=== PATIENT | female | born 1990 | race Caucasian/White ===

== ENCOUNTER → 2018-01-23 13:09 | Outpatient (CLI) | payer OTHER, SELFPAY ==
[2018-01-23 16:49] LABS: Glucose Challenge Gest 1H 50g 128 mg/dL (70-140)
[2018-01-23 17:01] LABS: Hematocrit 37.9 % (37-47); Hemoglobin 12.8 g/dl (12.0-15.0); Mean Corp Hgb Conc 33.8 g/gl (32-36); Mean Corpuscular Hgb 30.2 pg (27.0-32.0); Mean Corpuscular Volume 89.4 fL (81-99); Mean Platelet Vol. 10.4 fl (6.2-12.0); Platelet Count 285 K/mm3 (150-450); RBC Distribution Width CV 13.5 % (11.6-14.6); RBC Distribution Width SD 43.4 fl (35.1-43.9); Red Blood Count 4.24 M/mm3 (4.2-5.4); White Blood Count 17.9 K/mm3 (4.4-11.0)
[2018-01-23 17:14] LABS: Scan Indicated on CBC? Y/N NO
[2018-01-23 17:17] LABS: Vitamin D,25 Hydroxy 32.7 ng/mL (29.95-100.01)
== END ==
PROVIDERS: Visit Provider Obstetrics & Gynecology
DX: Z34.83 Encounter for supervision of other normal pregnancy, third trimester (principal)
CPT/HCPCS: 36415; 82306; 82950; 85027

== ENCOUNTER → 2018-02-02 14:24 | Outpatient (CLI) | payer BC, SELFPAY ==
[2018-02-02 15:54] LABS: Absolute Lymphocyte Count 2.54 X10^3/ul (0.83-4.51); Absolute Neutrophil Count 12.9 X10^3/uL (2.0-7.7); Basophil# 0.04 X10^3/uL; Basophil% 0.2 % (0-1); Eosinophil# 0.04 X10^3/uL; Eosinophils% 0.2 % (0-5); Hematocrit 39.9 % (37-47); Hemoglobin 13.6 g/dl (12.0-15.0); Lymphocyte # 2.54 X10^3/ul (4.0); Lymphocyte % 15.5 % (19-41); Mean Corp Hgb Conc 34.1 g/gl (32-36); Mean Corpuscular Hgb 30.1 pg (27.0-32.0); Mean Corpuscular Volume 88.3 fL (81-99); Mean Platelet Vol. 10.8 fl (6.2-12.0); Monocyte# 0.74 X10^3/uL; Monocyte% 4.5 % (0-10); Neutrophil # 12.88 X10^3/uL (2.7-7.7); Neutrophil % 78.6 % (47-70); Platelet Count 285 K/mm3 (150-450); RBC Distribution Width CV 13.3 % (11.6-14.6); RBC Distribution Width SD 42.3 fl (35.1-43.9); Red Blood Count 4.52 M/mm3 (4.2-5.4); White Blood Count 16.4 K/mm3 (4.4-11.0)
[2018-02-02 15:58] LABS: POSITIVE COUNT NO; POSITIVE DIFFERENTIAL NO; POSITIVE MORPHOLOGY NO
[2018-02-02 16:16] LABS: ALB/GLOB Ratio 0.5 RATIO (0.9-2.4); AST(SGOT) 17 U/L (15-37); Alanine Aminotransfer ALT/SGPT 23 U/L (13-56); Albumin, Serum 2.5 g/dL (3.2-5.0); Alkaline Phosphatase 140 U/L (45-117); Anion Gap 9 (5-15); BUN 9 mg/dL (7-18); BUN/Creat Ratio 13.9 RATIO (10-20); Calcium,Total 8.8 mg/dL (8.5-10.1); Chloride 105 mmol/L (98-107); Creatinine, Serum 0.65 mg/dL (0.55-1.02); EST Glomerular Filtration Rate 115 mL/min (>60); Est Glom Filt Rate - Afr Amer 139 mL/min (>60); Globulin 4.7 g/dL (2.2-4.2); Glucose 81 mg/dL (74-106); Protein, Total 7.2 g/dL (6.4-8.2); Sodium Level 137 mmol/L (136-145)
[2018-02-02 16:21] LABS: Protein, Urine (Random) 14.1 mg/dL (<11.9)
== END ==
PROVIDERS: Visit Provider Obstetrics & Gynecology
DX: Z34.83 Encounter for supervision of other normal pregnancy, third trimester (principal)
CPT/HCPCS: 80053; 82570; 84156; 84550; 85025

== ENCOUNTER 2018-02-23 09:45 | Inpatient (IN) | payer BC, SELFPAY ==
[2018-02-23] VITALS (18 sets, daily range): BP systolic 107–137; BP diastolic 61–91; PULSE 74–120; RESP 14–18; TEMP 35.7–36.7; O2SAT 96–100; BMI 40.5
[2018-02-23 09:08] LABS: ROM Internal Control Test YES-OK TO RESULT pt. (Internal QC)
[2018-02-23 09:09] LABS: ROM Patient Test POSITIVE (Negative)
[2018-02-23] MEDS: Betamethasone/Betamethasone 30 MG/5 ML Vial 12 MG IM (09:32)
[2018-02-23] MEDS: Lactated Ringers 1,000 ML 200 ML IV (09:45)
[2018-02-23 10:08] LABS: Absolute Lymphocyte Count 3.06 X10^3/ul (0.83-4.51); Absolute Neutrophil Count 12.8 X10^3/uL (2.0-7.7); Basophil# 0.03 X10^3/uL; Basophil% 0.2 % (0-1); Eosinophil# 0.04 X10^3/uL; Eosinophils% 0.2 % (0-5); Hematocrit 42.4 % (37-47); Hemoglobin 14.2 g/dl (12.0-15.0); Lymphocyte # 3.06 X10^3/ul (4.0); Lymphocyte % 17.9 % (19-41); Mean Corp Hgb Conc 33.5 g/gl (32-36); Mean Corpuscular Hgb 29.5 pg (27.0-32.0); Mean Platelet Vol. 11.4 fl (6.2-12.0); Monocyte# 0.97 X10^3/uL; Monocyte% 5.7 % (0-10); Neutrophil # 12.83 X10^3/uL (2.7-7.7); Neutrophil % 75.1 % (47-70); Platelet Count 285 K/mm3 (150-450); RBC Distribution Width CV 13.1 % (11.6-14.6); RBC Distribution Width SD 42.2 fl (35.1-43.9); Red Blood Count 4.82 M/mm3 (4.2-5.4); White Blood Count 17.1 K/mm3 (4.4-11.0)
[2018-02-23 10:09] LABS: POSITIVE COUNT NO; POSITIVE DIFFERENTIAL NO; POSITIVE MORPHOLOGY NO
[2018-02-23] MEDS: Sodium Citrate/Citric Acid 30 ML UDC PO (10:16)
[2018-02-23] MEDS: Cefazolin 2 GM in 0.9% Normal Saline 100 ML IV (10:39)
[2018-02-23 10:53] LABS: Group B Strep DNA By PCR Negative (Negative); Internal Control PASS; Probe Check PASS; Specimen Processing Control PASS
--- NOTE | 2018-02-23 11:28 | OP.PCM_ITS ---
Operative Report Date of Procedure: 02/23/18 Surgeon: Isaac Leal MD, FACOG [employer] Machine Operator: ANTONIO Gomez Anesthesia: Clark Dan CRNA Anesthesia: Spinal with Duramorph Pre-op Diagnosis: - -32+ week Twin with PPROM and Breech Presentation in Labor Post-Op Diagnosis: - -32+ week Twin with PPROM and Breech Presentation in Labor Procedure: Primary Low Transverse Cervical Caesarean Section Findings: A-- Viable female infant with Apgars of 8/9 in a pratibha breech presentation with clear amniotic fluid and normal three-vessel placenta; B-- Viable male infant with Apgars 8/8 in a complete breech presentation with clear amniotic fluid and normal three-vessel placenta. Indication: This is a 27-year-old who who presents to labor and delivery at 32 w 6 days gestation with PPROM and in labor. care remarkable for twin gestation but otherwise has been uneventful. The patient has been counseled regarding the risk and indications of this procedure including the possibility of bleeding infection and injury to surrounding structures such as bowel bladder. All questions were answered. Procedure: Patient was taken to the operating room where after spinal anesthesia was placed, the patient was prepped and draped in usual sterile fashion and a Andres catheter was placed. The abdomen was entered through a Pfannenstiel incision and peritoneum was entered bluntly. After developing a bladder flap on the lower uterine segment a low transverse incision was made on the uterus and breech was easily delivered onto the operative field and nose mouth and oropharynx were bulb suctioned. Subsequently a viable female infant was born with Apgars of 8/9. The infant was noted to cry move all extremities vigorously on the operative field. The umbilical cord was doubly clamped and ligated and infant handed to the nursery personnel who were present for the delivery. Baby B breech was also easily delivered onto the operative field and nose mouth and oropharynx were bulb suctioned. Subsequently a viable male was born with Apgars of 8/8. The was noted to cry move all extremities vigorously on the operative field. The umbilical cord was doubly clamped and ligated and handed to the nursery personnel who were present for the delivery. Placenta was delivered and noted to be 3 vessels and normal. Uterus was exteriorized and remaining placental tissue was removed. The uterus was then closed in 2 layers first with running locked 0 Vicryl suture followed by a second imbricating layer with 0 Vicryl suture. 0 Vicryl suture was then used in a horizontal mattress interrupted fashion to affect final hemostasis of the uterine incision line. Normal fallopian tubes and ovaries were visualized and the uterus was returned to the pelvis. Hemostasis was noted and rectus abdominis muscles were reapproximated in the midline with interrupted Number 0 Vicryl suture in a horizontal mattress fashion. Fascia was closed with running Number 1 PDS Strata fix suture. Subcutaneous tissue was irrigated with copious amouts of saline solution and then closed with running 3-0 Vicryl suture. Skin was closed with 4-0 monocryl suture in a running subcuticular fashion. Steri strips, telfa, and tape were placed across the incision. The patient tolerated the procedure well and was taken to the recovery room in satisfactory condition. Sponge, needle, and instrument counts were all reportedly correct. EBL was <500 cc. Cefotan 2 gms IV was given prior to the procedure. Spicemen to Pathology: Twin di-di Placenta Complications: None
--- NOTE | 2018-02-23 11:29 | DCINST_ITS ---
Discharge Diet: No Restrictions Discharge Activity: May not drive while taking narcotic pain medications., May Shower, May Take a Tub Bath May resume sexual activity in: 4-6 weeks Lifting Restrictions: 20 pounds Additional Activity Instructions:: Nothing in the vagina for 4-6 weeks. You may return to work/school in 6 weeks. Call your doctor if your incision/area has: Continuous Slow Oozing, Sudden Increased Bleeding, Increased Pain/ Swelling, Increased Redness, Foul Smelling Discharge Call your doctor if you observe: Fever of 101 or Higher, Inability to urinate, Inability to have a bowel movement, Using more than one pad per hour Additional Instructions: If you experience any of the following, contact your healthcare provider. * Bleeding that soaks a pad every hour for 2 hours * Unrelieved incision or abdominal pain * Swelling, redness, discharge or bleeding from your incision or episiotomy site * Your incision begins to separate * Problems urinating (including inability to urinate or burning while urinating) . * Visual changes * Severe headache * Flu-like symptoms * Pain or redness in one of both of your breasts * Pain, warmth, tenderness or swelling in your legs, especially the calf area * Frequent nausea and vomiting * Symptoms of depression or anxiety If you experience any of the following, call 911 or go to the nearest Emergency Room. * Chest pain * Problems breathing * Seizure activity * Partial or complete paralysis of a body part, slurred speech, weakness or drooping of the face, or a sudden inability to walk or hold your balance Allergies/Adverse Reactions: Allergies No Known Allergies Allergy (Verified 02/23/18 09:00) Medications to take at Discharge Docusate Sodium [Colace] 100 mg PO BID PRN PRN #60 cap 02/23/18 Ferrous Sulfate [Iron] 325 mg PO DAILY 02/23/18 Oxycodone [Oxyir] 5 - 10 mg PO Q6H PRN PRN 7 Days #20 tab 02/23/18 Vits [Prenatabs FA] 1 tablet PO DAILY 02/23/18 The following prescriptions were given: Oxycodone [Oxyir] 5 - 10 mg PO Q6H PRN PRN 7 Days #20 tab PRN Reason: Severe Pain (-07/22) Docusate Sodium [Colace] 100 mg PO BID PRN PRN #60 cap PRN Reason: Constipation Follow-Up: Call to make an appointment with your doctor for an incision check in 1-2 weeks. You will also need a 6 week post- follow up appointment. Please Follow Up With: Rosa Morris MD - [phone] When: Call to make an appointment for an incision check in 2 weeks. Primary Care Physician: Karri Williamson MD [Primary Care Provider] -
[2018-02-23] MEDS: Lactated Ringers 1,000 ML 100 ML IV ×2 (11:30→16:40)
[2018-02-23] MEDS: Ketorolac 30 MG/ML Syringe IV ×2 (17:11→23:48)
[2018-02-23] MEDS: 0.9% Saline Lock 10 ML Syringe IV (17:45)
[2018-02-24] VITALS (10 sets, daily range): BP systolic 100–129; BP diastolic 58–76; PULSE 69–91; RESP 16–18; TEMP 36–36.7; O2SAT 96–100
[2018-02-24] MEDS: Ketorolac 30 MG/ML Syringe IV ×3 (06:02→18:40)
[2018-02-24] MEDS: Lactated Ringers 1,000 ML 100 ML IV (06:02)
[2018-02-24 06:33] LABS: Hematocrit 38.3 % (37-47); Hemoglobin 12.9 g/dl (12.0-15.0); Mean Corp Hgb Conc 33.7 g/gl (32-36); Mean Corpuscular Hgb 29.8 pg (27.0-32.0); Mean Corpuscular Volume 88.5 fL (81-99); Mean Platelet Vol. 11.1 fl (6.2-12.0); Platelet Count 227 K/mm3 (150-450); RBC Distribution Width CV 13.2 % (11.6-14.6); RBC Distribution Width SD 42.8 fl (35.1-43.9); Red Blood Count 4.33 M/mm3 (4.2-5.4); White Blood Count 26.1 K/mm3 (4.4-11.0)
[2018-02-24 06:34] LABS: Scan Indicated on CBC? Y/N NO
--- NOTE | 2018-02-24 06:36 | PN.OBGYN_ITS ---
Subjective: Patient without complaints. Tolerating diet well. Baby boy to [place] for surfactant. - Physical Exam Vital Signs AF, VSS Temp Pulse Resp BP Pulse Ox 98.1 F 70 16 100/58 L 98 02/24/18 04:00 02/24/18 04:00 02/24/18 04:00 02/24/18 04:00 02/24/18 04:00 Oxygen Delivery Method Room Air Weight: 221 lb 12.56 oz Body Mass Index (BMI) 40.5 Intake and Output for Last 24 Hours 02/22/18 02/23/18 02/24/18 23:59 23:59 23:59 Intake Total 576 / 576 600 / 600 Output Total 850 / 850 1500 / 1500 Balance -274 / -274 -900 / -900 Laboratory Tests Past 24 Hrs 02/23/18 02/23/18 02/23/18 08:50 08:50 09:43 WBC 17.1 H RBC 4.82 Hgb 14.2 Hct 42.4 MCV 88.0 MCH 29.5 MCHC 33.5 RDW 13.1 RDW Differential 42.2 Plt Count 285 MPV 11.4 Immature Gran % (Auto) 0.900 Neut % (Auto) 75.1 H Lymph % (Auto) 17.9 L [place] % (Auto) 5.7 Eos % (Auto) 0.2 Baso % (Auto) 0.2 Absolute Neuts (auto) 12.8 H Absolute Lymphs (auto) 3.06 Total Counted Not Reportable Vag Amniotic Fld Detect POSITIVE H Group B Strep DNA Negative Specimen Comment Not Reportable Blood Type Antibody Screen 02/23/18 02/24/18 09:43 06:20 WBC Pending RBC Pending Hgb Pending Hct Pending MCV Pending MCH Pending MCHC Pending RDW Pending RDW Differential Pending Plt Count Pending MPV Immature Gran % (Auto) Neut % (Auto) Lymph % (Auto) [place] % (Auto) Eos % (Auto) Baso % (Auto) Absolute Neuts (auto) Absolute Lymphs (auto) Total Counted Vag Amniotic Fld Detect Group B Strep DNA Specimen Comment Blood Type A POSITIVE Antibody Screen NEGATIVE Wound is clean, dry, intact. Good urine output. Hemoglobin pending this morning. Medical Necessity - Tobacco Use Smoking Status: Never smoker Assessment/Plan Doing well. Continuing present care. Will consider hotel status tomorrow so patient can go back and forth between [facility] and [place] to be with [facility] and separate hospitals.
[2018-02-24] MEDS: Acetaminophen 500 MG Tablet 1000 MG PO (16:37)
[2018-02-24] MEDS: 0.9% Saline Lock 10 ML Syringe IV (18:41)
[2018-02-25] MEDS: 0.9% Saline Lock 10 ML Syringe IV ×2 (00:37→06:35)
[2018-02-25] MEDS: Ketorolac 30 MG/ML Syringe IV ×2 (00:37→06:35)
[2018-02-25 02:00] VITALS: BP 113/67; PULSE 69; RESP 17; TEMP 36.9
[2018-02-25] MEDS: Acetaminophen 500 MG Tablet 1000 MG PO ×2 (02:00→09:58)
[2018-02-25 06:54] LABS: Hematocrit 34.6 % (37-47); Hemoglobin 11.7 g/dl (12.0-15.0); Mean Corp Hgb Conc 33.8 g/gl (32-36); Mean Corpuscular Hgb 30.2 pg (27.0-32.0); Mean Corpuscular Volume 89.4 fL (81-99); Mean Platelet Vol. 10.4 fl (6.2-12.0); Platelet Count 240 K/mm3 (150-450); RBC Distribution Width CV 13.6 % (11.6-14.6); RBC Distribution Width SD 43.9 fl (35.1-43.9); Red Blood Count 3.87 M/mm3 (4.2-5.4); White Blood Count 18.9 K/mm3 (4.4-11.0)
[2018-02-25 06:55] LABS: Scan Indicated on CBC? Y/N NO
[2018-02-25 08:09] VITALS: BP 112/64; PULSE 76; RESP 16; TEMP 36.5
--- NOTE | 2018-02-25 08:43 | PCM.PN.OB ---
Subjective: Patient without complaints. Tolerating diet well. Positive flatus. Wants to go home. - Physical Exam Vital Signs AF, VSS Temp Pulse Resp BP Pulse Ox 97.7 F L 76 16 112/64 98 02/25/18 08:09 02/25/18 08:09 02/25/18 08:09 02/25/18 08:09 02/24/18 16:34 Oxygen Delivery Method Room Air Weight: 221 lb 12.56 oz Body Mass Index (BMI) 40.5 Intake and Output for Last 24 Hours 02/23/18 02/24/18 02/25/18 23:59 23:59 23:59 Intake Total 576 / 576 1983 / 1983 Output Total 850 / 850 3750 / 3750 Balance -274 / -274 -1766 / -1766 Laboratory Tests Past 24 Hrs 02/25/18 06:40 WBC 18.9 H RBC 3.87 L Hgb 11.7 L Hct 34.6 L MCV 89.4 MCH 30.2 MCHC 33.8 RDW 13.6 RDW Differential 43.9 Plt Count 240 MPV 10.4 Wound is clean, dry, intact. Good urine output. Hemoglobin stable. WBC decreasing. Medical Necessity - Tobacco Use Smoking Status: Never smoker Assessment/Plan Doing well postoperative day #2 status post . Will release to home with routine instructions. Follow-up in 2 and 6 weeks.
== END 2018-02-25 11:40 | disposition home or self-care (01) | DRG 765 ==
LOC: WPOUT 09:48 → WP 10:53
PROVIDERS: Obstetrics & Gynecology; Admitting Provider Obstetrics & Gynecology; Family Provider Family Medicine; PCP Family Medicine; Visit Provider Obstetrics & Gynecology
PROC: (CPT 59514; principal; 2018-04-03 11:45)
DX: O30.003 Twin pregnancy, unspecified number of placenta and unspecified number of amniotic sacs, third trimester (principal); O60.14X1 Preterm labor third trimester with preterm delivery third trimester, fetus 1; O60.14X2 Preterm labor third trimester with preterm delivery third trimester, fetus 2; O32.1XX1 Maternal care for breech presentation, fetus 1; O32.1XX2 Maternal care for breech presentation, fetus 2; E55.9 Vitamin D deficiency, unspecified; Z79.899 Other long term (current) drug therapy; Z3A.32 32 weeks gestation of pregnancy; Z37.2 Twins, both liveborn
CPT/HCPCS: 59025; 59050; 84112; 85025; 85027; 86850; 86900; 87081; 87653; 99218; J7120; A4216; G0378; J0702; J2405

== ENCOUNTER → 2022-02-08 | Outpatient (CLI) | payer OTHER, SELFPAY | END | disposition home or self-care (01) | PROVIDERS: Visit Provider Obstetrics & Gynecology | DX: Z12.4 Encounter for screening for malignant neoplasm of cervix (principal); N77.1 Vaginitis, vulvitis and vulvovaginitis in diseases classified elsewhere; N76.0 Acute vaginitis; N93.8 Other specified abnormal uterine and vaginal bleeding ==